=== PATIENT | male | born 1960 | race Caucasian/White ===

== ENCOUNTER 2020-10-13 12:15 | Emergency (ER) | payer OTHER, SELFPAY ==
--- NOTE | ~2020-10-13 | XR_ITS ---
EXAMINATION: XR chest 2V DATE: 10/13/2020 12:49 INDICATION: Shortness of breath. Cough. TECHNIQUE: Frontal and lateral views of the chest were obtained. COMPARISON: None. FINDINGS: There are tiny pleural effusions. There are mild airspace opacities at the lung bases. No p neumothorax. The heart size is normal. There is a moderate-sized hiatal hernia. There is mild anterio r wedging of multiple vertebral bodies near thoracolumbar junction, likely chronic. IMPRESSION: 1. Mild airspace opacities at the lung bases, consistent with atelectasis or less likely pneumonia. 2. Tiny pleural effusions. 3. Moderate-sized hiatal hernia. Reviewed, dictated and finalized at location A. IMPRESSION: 1. Mild airspace opacities at the lung bases, consistent with atelectasis or le ss likely pneumonia. 2. Tiny pleural effusions. 3. Moderate-sized hiatal hernia.
--- NOTE | 2020-10-13 12:28 | ED.GENADULT ---
HPI - General Adult General Chief complaint: Shortness of Breath/Dyspnea Stated complaint: Shortness of Breathe Source: patient Mode of arrival: ambulatory Limitations: no limitations History of Present Illness HPI narrative: Patient is a 60-year-old male who presents to the [facility] care via POV for evaluation of shortness of breath that began approximately 1 week ago upon awakening. Additionally, patient reports experiencing generalized headache and a dry cough. Denies taking OTC meds for symptoms. Denies alleviating factors. Patient states, thinking about it too much worsens symptoms. Denies known exposure to sick contacts. Patient reports he is up-to-date on Covid vaccine. Of note, patient reports calling EMS last night due to having a panic attack . He reports his EKG, pulse ox, and O2 was good . He reports that refused to be transported via EMS to ER at that time. Patient reports he is a half a pack per day cigarette smoker x45 to 50 years. Patient does not have a current PCP. He states the last time he seen a PCP was years ago . Related Data Allergies Allergy/AdvReac Type Severity Reaction Status Date / Time No Known Allergies Allergy Verified 10/13/20 12:38 Review of Systems Review of Systems: Narrative: Denies fever, chills, sweats, change in appetite, poor p.o. intake, dizziness, LOC, weakness, difficulty with ambulation/coordination, skin color changes, chest pain, heart palpitations, sputum production, edema, abdominal pain, nausea, vomiting, and diarrhea PMFSH Comments I have reviewed and agree with the patient's past medical, surgical, social, and family hx as documented by the RN. There is no relevant family history pertinent to the presenting complaint. Exam Narrative: Exam Narrative: GENERAL: Well-appearing, well-nourished, and in no acute distress. HEAD: Normocephalic, atraumatic. EYES: PERRLA and EOMI. ENT: Nares clear, no rhinorrhea or epistaxis. Mucous membranes moist. NECK: Supple. No lymphadenopathy appreciated CHEST: Clear to auscultation although mildly diminished in bilat posterior lung abraham. Mildly tachypneic with 24 respirations per minute. HEART: Tachycardia with a rate of 108. Regular rhythm. No murmur heard. Normal peripheral pulses. ABDOMEN: Soft, nontender, nondistended, normal active bowel sounds. EXTREMITIES: Normal range of motion. No edema. SKIN: Warm, dry, no rash. NEURO: No focal deficits. Alert and oriented x3. PSYCH: A/O x3. Appears anxious. Course Vital Signs Vital signs: Vital Signs Temperature 98.1 F 10/13/20 12:31 Pulse Rate 108 H 10/13/20 12:31 Respiratory Rate 24 H 10/13/20 12:31 Blood Pressure 128/81 10/13/20 12:31 Pulse Oximetry 98 10/13/20 12:31 Temperature 98.1 F 10/13/20 12:31 Pulse Rate 108 H 10/13/20 12:31 Respiratory Rate 24 H 10/13/20 12:31 Blood Pressure 128/81 10/13/20 12:31 Pulse Oximetry 98 10/13/20 12:31 Reviewed. Due to an elevated blood pressure, I had a detailed discussion with the patient and/or guardian regarding the need for follow-up with their primary care provider within the next 3-4 days. Patient verbalized understanding and agreed. Procedures Smoking Cessation Patient Acknowledges Need for Cessation: No Medical Decision Making MDM Narrative Medical decision making narrative: Shortness of breath resolved after DuoNeb treatment. RR at 16. Differential Diagnosis Differential Diagnosis: COPD exacerbation, pneumonia, URI, COVID-19 Medical Records Medical records reviewed: Yes I reviewed the external patient's medical records. Vital Signs Vital Signs: Vital Signs Temperature 98.1 F 10/13/20 12:31 Pulse Rate 108 H 10/13/20 12:31 Respiratory Rate 24 H 10/13/20 12:31 Blood Pressure 128/81 10/13/20 12:31 Pulse Oximetry 98 10/13/20 12:31 Temperature 98.1 F 10/13/20 12:31 Pulse Rate 108 H 10/13/20 12:31 Respiratory Rate 24 H 10/13/20 12:31 Blood Pressure 128/81 0
[2020-10-13 12:30] VITALS: PULSE 102; RESP 22; O2SAT 98
[2020-10-13 12:31] VITALS: BP 128/81; PULSE 108; RESP 24; TEMP 36.7; O2SAT 98
[2020-10-13] MEDS: IPRATROPIUM BR 0.02% INH SOLN 0.5 MG/2.5 ML VIAL INHALATION (13:20)
[2020-10-13] MEDS: ALBUTEROL SULFATE NEB 2.5 MG/0.5 ML INH INHALATION (13:21)
[2020-10-13 13:40] VITALS: PULSE 104; RESP 16; O2SAT 99
== END 2020-10-13 13:54 | disposition home or self-care (01) ==
PROVIDERS: Emergency Provider Nurse Practitioner Family
DX: J44.1 Chronic obstructive pulmonary disease with (acute) exacerbation (principal)
CPT/HCPCS: 71046; 94640; 99203; G0463